=== PATIENT | male | born 1970 | race Caucasian/White ===

== ENCOUNTER 2016-10-22 02:02 | Emergency (ER) | payer SELFPAY ==
[~2016-10-22] VITALS: Ht 188 cm; Wt 154.2 kg
[2016-10-22 03:02] LABS: BASOPHIL % 1.2 % (0-2); PLATELET COUNT 212 x10^3mcL (130-400); RED CELL DISTRIBUTION WIDTH 13.7 % (11.5-14.5)
[2016-10-22 03:27] LABS: CALCIUM 8.9 mg/dL (8.5-10.1); CARBON DIOXIDE 27.7 mmol/L (21-32); CHLORIDE SERUM 104 mmol/L (98-107); CREATININE SERUM 1.1 mg/dL (0.7-1.3); GFR1 > 60 mL/min; GLUCOSE SERUM 156 mg/dL (74-106); POTASSIUM SERUM 3.9 mmol/L (3.5-5.1); SODIUM SERUM 143 mmol/L (136-145)
[2016-10-22 03:31] LABS: ALBUMIN 4.1 g/dL (3.4-5.0); ALKALINE PHOSPHATASE 58 U/L (46-116); ALT/SGPT 76 U/L (16-63); AST/SGOT 51 U/L (15-37)
[2016-10-22 05:26] LABS: CHOLESTEROL/HDL RATIO 4.3
[2016-10-22 05:34] LABS: FREE T4 1.07 ng/dL (0.76-1.46); FREE THYROXINE INDEX 2.8 ug/dL (1.4-4.5); T4(THYROXINE) 9.6 ug/dL (4.7-13.3)
[2016-10-22 05:35] LABS: T3 TOTAL 1.28 ng/mL
[2016-10-22 08:36] LABS: UA SPECIFIC GRAVITY >=1.030 (1.005-1.035); microscopic required? YES; urine erythrocyte NEGATIVE (NEGATIVE)
[2016-10-22 08:43] LABS: AMPHETAMINE QUAL UR NONE DETECTED (NEG <=1000)
[2016-10-22 14:15] VITALS: BP 132/83
== END 2016-10-22 14:15 | disposition home or self-care (01) ==
LOC: ED 02:02
PROVIDERS: Emergency Medicine; Family Medicine
DX: M79.1 Myalgia (principal)
CPT/HCPCS: 83880; 84439; J1170; J1885; J2060; J7030; Q0092; Q0162; Q9967